=== PATIENT | male | born 1950 | race Caucasian/White ===

== ENCOUNTER 2020-09-15 15:11 | Inpatient (IN) | payer OTHER, MEDICARE ==
--- NOTE | 2020-09-15 15:59 | ED ---
Chest Pain HPI - General Chief Complaint: Chest Pain Stated Complaint: Chest Pain Time Seen by Provider: 09/15/20 15:42 Source: patient Mode of arrival: ambulatory Limitations: no limitations - History of Present Illness Initial Comments: Dictation was produced using [employer] dictation software. please excuse any grammatical, word or spelling errors. This patient was cared for during a federal and state declared state of emergency secondary to Covid 19 Chief Complaint: 70-year-old male past medical history of diabetes, this to be due to hypertension, abdominal wall hernia presents with epigastric point tenderness and left anterior rib pain History of Present Illness: 70-year-old male has multiple comorbidities. 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 He states he was in various POSITIONS that he is not normally used to. He states that while he was working he began to feel a pop tart tenderness over his epigastric area. States that it only hurts when he presses surgery positions. Same goes for his left anterior rib pain. He has no Lee diaphoresis. No radiation of symptoms to this shoulder shower extremities. Patient has history of broad-based ventral hernia. He has no nausea vomiting. The ROS documented in this emergency department record has been reviewed and confirmed by me. Those systems with pertinent positive or negative responses have been documented in the HPI. All other systems are other negative and/or noncontributory. PHYSICAL EXAM: General Impression: Alert and oriented x3, not in acute distress HEENT: Normocephalic atraumatic, extra-ocular movements intact, pupils equal and reactive to light bilaterally, mucous membranes moist. Cardiovascular: Heart regular rate and rhythm Chest: Able to complete full sentences, no retractions, no tachypnea Abdomen: abdomen soft, non-distended, no organomegaly, 2 x 2 cm point palpatory tenderness to the epigastric area just below the xiphoid. Rest of abdominal exam is benign Musculoskeletal: Pulses present and equal in all extremities, no peripheral edema Motor: no focal deficits noted Neurological: CN II-XII grossly intact, no focal motor or sensory deficits noted Skin: Intact with no visualized rashes Psych: Normal affect and mood ED course:70-year-old male presents with clinical presentation consistent with upper abdominal wall strain and left sided rib strain. vital signs upon arrival are within acceptable limits. Platelet care bedside ultrasound was performed showing no subcutaneous abnormalities. There is no abnormal fluid collection or signs of subcu to use inflammation. Lab data evaluation obtained mild acidosis similar 0.5. Metabolic panel is negative. Lipase is 1500. Patient's symptoms are secondary to pancreatitis. Patient will be admitted. Case was discussed Dr. Orozco who requested a gallbladder ultrasound. Patient be admitted for supportive management, GI consultation and further care. Patient be admitted to Dr. Orozco EKG interpretation: Ventricular rate 106, sinus tachycardia,. 156, QRS 80, QTC 475. No PA prolongation, no QTC prolongation, no ST or T-wave changes noted. No old EKG for comparison Overall, this EKG is unremarkable - Related Data Home Medications Medication Instructions Recorded Confirmed Cyclobenzaprine [Flexeril] 10 mg PO BID PRN 03/19/20 09/15/20 lisinopriL 20 mg PO DAILY 03/19/20 09/15/20 Cholecalciferol [Vitamin D3 (25 50 mcg PO DAILY 09/15/20 09/15/20 Mcg = 1000 Iu)] L.acidoph,Paracasei, B.lactis 1 cap PO BID 09/15/20 09/15/20 [Probiotic] Multivitamins, Thera [Multivitamin 1 tab PO DAILY 09/15/20 09/15/20 (formulary)] Pravastatin Sodium 40 mg PO HS 09/15/20 09/15/20 Allergies Allergy/AdvReac Type Severity Reaction Status Date / Time No Known Allergies Allergy Verified 09/15/20 17:06 Review of Systems ROS Statement: Those systems with pertinent positive or pertinent negative responses have been documented in the HPI. ROS Other: All systems not noted in ROS Statement are negative. Past Medical History Past Medical History: Cancer, Diabetes Mellitus, Hyperlipidemia, Hypertension, Osteoarthritis (OA) Additional Past Medical History / Comment(s): Plantar Faciitis , hiatal hernia. History of Any Multi-Drug Resistant Organisms: None Reported Additional Past Surgical History / Comment(s): hemicolectomy Past Anesthesia/Blood Transfusion Reactions: No Reported Reaction Past Psychological History: No Psychological Hx Reported Smoking Status: Current every day smoker Past Alcohol Use History: Daily Past Drug Use History: None Reported General Exam Limitations: no limitations Course Vital Signs 09/15/20 09/15/20 09/15/20 15:13 15:34 16:15 Temperature 97.9 F Pulse Rate 96 93 84 Respiratory 20 18 16 Rate Blood Pressure 153/86 147/97 124/88 O2 Sat by Pulse 98 99 97 Oximetry Disposition Clinical Impression: Pancreatitis Disposition: ADMITTED IP TO THIS HOSP Condition: Fair Referrals: Fabien Orozco Jr, DO [Primary Care Provider] - 1-2 days Decision Time: 17:18
[2020-09-15 16:06] LABS: Basophils % (A) 0 %; Eosinophils # (A) 0.4 k/uL (0-0.7); Eosinophils % (A) 3 %; HCT 37.3 % (39.0-53.0); HGB 12.6 gm/dL (13.0-17.5); Lymphocytes # (A) 1.4 k/uL (1.0-4.8); Lymphocytes % (A) 12 %; MCH 29.3 pg (25.0-35.0); MCHC 33.9 g/dL (31.0-37.0); MCV 86.3 fL (80.0-100.0); Mean Platelet Volume 7.1; Monocytes # (A) 0.4 k/uL (0-1.0); Monocytes % (A) 4 %; Neutrophils # (A) 9.2 k/uL (1.3-7.7); Neutrophils % (A) 80 %; Platelet Count 363 k/uL (150-450); RBC 4.32 m/uL (4.30-5.90); RDW 12.9 % (11.5-15.5); WBC 11.5 k/uL (3.8-10.6)
[2020-09-15 16:19] LABS: ALT 37 U/L (4-49); AST 56 U/L (17-59); African American GFR (CKD) >90 (>60 ml/min/1.73 sqM); Albumin 4.2 g/dL (3.5-5.0); Alkaline Phosphatase 217 U/L (38-126); Anion Gap 7 mmol/L; Blood Urea Nitrogen 16 mg/dL (9-20); Calcium 9.8 mg/dL (8.4-10.2); Carbon Dioxide 31 mmol/L (22-30); Chloride 100 mmol/L (98-107); Glucose 135 mg/dL (74-99); Lipase 1499 U/L (23-300); Non-African American GFR(CKD) >90 (>60 ml/min/1.73 sqM); Potassium 4.4 mmol/L (3.5-5.1); Sodium 138 mmol/L (137-145); Total Bilirubin 0.4 mg/dL (0.2-1.3); Total Protein 7.2 g/dL (6.3-8.2)
--- NOTE | 2020-09-15 16:44 | XR ---
EXAMINATION TYPE: XR abdomen acute w cxr DATE OF EXAM: 09/15/2020 COMPARISON: 09/28/2011 chest x-ray HISTORY: Chest pain TECHNIQUE: 4 views FINDINGS: Heart is normal. Lungs are clear of consolidation. There are numerous calcified granulomata scattered in the lungs. There are no hilar masses. Mediastinum is normal. There are chest leads. The re is no sign of pleural effusion. There is no sign of intestinal obstruction or pneumoperitoneum. Fecal pattern is normal. There is no evidence of a mass. There are no pathologic calcifications over the kidneys. IMPRESSION: Nonacute abdomen. Old granulomatous disease. No active cardiopulmonary disease. No adverse change of the chest compared to old exam. Normal heart.
[2020-09-15] MEDS ORDERED: SODIUM CHLORIDE 0.9% 1,000 ML IV STA (16:52)
[2020-09-15] MEDS ORDERED: NALOXONE 0.4 MG/ML 1 ML VIAL IV PRN (17:12)
[2020-09-15] MEDS ORDERED: ONDANSETRON 4 MG/2 ML VIAL IVP PRN (17:12)
--- NOTE | 2020-09-15 19:10 | US ---
EXAMINATION TYPE: US gallbladder DATE OF EXAM: 09/15/2020 COMPARISON: NONE CLINICAL HISTORY: pancreatitis. Pancreatitis per order. Hx colon cancer and part of colon removed per patient. EXAM MEASUREMENTS: Liver Length: 19.6 cm Gallbladder Wall: 0.22 cm CBD: 0.69 cm Right Kidney: 11.8 x 6.0 x 5.5 cm Pancreas: Appears heterogeneous. Limited visibility of tail. Duct measures 2.9 mm. Liver: Appears enlarged and very heterogeneous. Multiple areas visualized in liver. Hyperechoic ar ea seen right lobe measurin.9 x 3.6 x 3.5 cm. A second hyperechoic area seen right lobe measuring : 3.0 x 4.1 x 2.4 cm. Hypoechoic area seen right lobe measurin.6 x 2.4 x 1.5 cm. Gallbladder: Appears anechoic. Evidence for sonographic Wilcox's sign: No CBD: Appears slightly dilated versus measuring upper limits of normal. Right Kidney: No hydronephrosis or masses seen IMPRESSION: No dilation seen of the intrahepatic bile ducts. Large common bile duct could relate to some gallblad sony dysfunction. No gallstones seen. Multiple solid liver lesions. These are nonspecific. Hemangiomas are possible.
[2020-09-15] MEDS: HYDROcodone/APAP 10-325MG 1 EACH TAB PO PRN (22:43)
[2020-09-15] MEDS: PRAVASTATIN SODIUM 80 MG TAB PO SCH (22:43)
[2020-09-16] MEDS: lisinopriL 20 MG TAB PO SCH (09:22)
[2020-09-16] MEDS: HYDROcodone/APAP 10-325MG 1 EACH TAB PO PRN ×3 (09:24→20:31)
--- NOTE | 2020-09-16 09:44 | NM ---
EXAMINATION TYPE: NM hepatobiliary w CCK DATE OF EXAM: 09/16/2020 COMPARISON: Gallbladder ultrasound from yesterday HISTORY: Gallbladder dysfunction per order. Epigastric pain, heartburn-like symptoms. TECHNIQUE: After the intravenous administration of 5.0 mCi Tc 99m Mebrofenin hepatobiliary scintigrap hy is performed. Immediate images post injection. FINDINGS: There is satisfactory initial accumulation of tracer by the liver. The gallbladder is visualized wit hin 15 minutes. The small bowel activity is noted within 45 minutes. At one hour CCK was administer ed, patient was injected with 1.8 mcg of Kinevac, and gallbladder ejection fraction is calculated at 72 %, in the normal range. Therefore there is no scintigraphic evidence of cystic or common bile cathy t obstruction to suggest acute cholecystitis or gallbladder dyskinesia. IMPRESSION: Exam is within normal limits.
[2020-09-16] MEDS: SODIUM CHLORIDE 0.9% 1,000 ML IV SCH ×3 (10:23→16:42)
[2020-09-16 10:29] LABS: Basophils % (A) 0 %; Eosinophils # (A) 0.2 k/uL (0-0.7); Eosinophils % (A) 2 %; HCT 33.9 % (39.0-53.0); HGB 11.2 gm/dL (13.0-17.5); Lymphocytes # (A) 0.9 k/uL (1.0-4.8); Lymphocytes % (A) 9 %; MCV 87.9 fL (80.0-100.0); Mean Platelet Volume 7.5; Monocytes # (A) 0.4 k/uL (0-1.0); Monocytes % (A) 4 %; Neutrophils # (A) 8.8 k/uL (1.3-7.7); Neutrophils % (A) 84 %; Platelet Count 304 k/uL (150-450); RBC 3.86 m/uL (4.30-5.90); WBC 10.4 k/uL (3.8-10.6)
[2020-09-16 11:00] LABS: ALT 40 U/L (4-49); AST 59 U/L (17-59); African American GFR (CKD) >90 (>60 ml/min/1.73 sqM); Albumin 3.5 g/dL (3.5-5.0); Albumin/Globulin Ratio 1.3; Alkaline Phosphatase 187 U/L (38-126); Anion Gap 3 mmol/L; Blood Urea Nitrogen 13 mg/dL (9-20); Calcium 8.8 mg/dL (8.4-10.2); Carbon Dioxide 28 mmol/L (22-30); Chloride 106 mmol/L (98-107); Globulin 2.8 g/dL; Glucose 104 mg/dL (74-99); Lipase 376 U/L (23-300); Non-African American GFR(CKD) >90 (>60 ml/min/1.73 sqM); Potassium 4.4 mmol/L (3.5-5.1); Sodium 137 mmol/L (137-145); Total Bilirubin 0.5 mg/dL (0.2-1.3); Total Protein 6.3 g/dL (6.3-8.2)
--- NOTE | 2020-09-16 13:20 | P.GSCN ---
History of Present Illness Consult date: 09/16/20 History of present illness: CHIEF COMPLAINT: Abdominal pain HISTORY OF PRESENT ILLNESS: This is a 70-year-old male with a known history of hypertension, borderline diabetic, hyperlipidemia, abdominal wall hernia, nicotine dependence, colon cancer status post hemicolectomy. Patient presented to the emergency room with complaints of epigastric pain. He reports that the pain started yesterday. Patient was found to have elevated lipase and his been diagnosed with acute pancreatitis. He reports no prior history of pancreatitis. He reports having about 2-3 beers over the last 6 months. He has not had any alcohol recently. He denies any fever, chills or sweats. Denies any change in bowel movements. PAST MEDICAL HISTORY: See list. PAST SURGICAL HISTORY: See list. MEDICATIONS: See list. ALLERGIES: See list. SOCIAL HISTORY: No illicit drug use. REVIEW OF SYSTEMS: CONSTITUTIONAL: Denies fever or chills. HEENT: Denies blurred vision, vision changes, or eye pain. Denies hemoptysis CARDIOVASCULAR: Denies chest pain or pressure. RESPIRATORY: No shortness of breath. GASTROINTESTINAL: See HPI for pertinent findings HEMATOLOGIC: Denies bleeding disorders. GENITOURINARY: Denies any blood in urine or increased urinary frequency. SKIN: Denies pruitis. Denies rash. PHYSICAL EXAM: VITAL SIGNS: Reviewed GENERAL: Well-developed in no acute distress. HEENT: No sclera icterus. Extraocular movements grossly intact. Moist buccal mucosa. Head is atraumatic, normocephalic. No nasal drainage. ABDOMEN: Soft. Nondistended. Epigastric tenderness with palpation NEUROLOGIC: Alert and oriented. Cranial nerves II through XII grossly intact. LABORATORY DATA: WBC 10.4 Hgb 11.2 platelets 304 sodium 137 potassium 4.4 creatinine 0.66 LFTs are normal alk phos 187 and lipase has come down from 1499-376 IMAGING: Gallbladder ultrasound no dilation seen of the intrahepatic bile ducts. Large common bile duct could relate to some gallbladder dysfunction. No gallstones seen. HIDA scan: Exam within normal limits EF 72% Abdominal x-ray nonacute abdomen ASSESSMENT: 1. Acute pancreatitis improving. 2. No evidence of gallbladder dysfunction on HIDA scan PLAN: -Continue supportive care -Continue IV fluids -No surgical intervention planned Thank you for this consultation Physician [employer] note has been reviewed by physician. Signing provider agrees with the documented findings, assessment, and plan of care. Past Medical History Past Medical History: Cancer, Diabetes Mellitus, Hyperlipidemia, Hypertension, Osteoarthritis (OA) Additional Past Medical History / Comment(s): Plantar Faciitis , hiatal hernia. Colon CA- surg (no chemo/ rad),. Pre-diabetes (last hbg A1C- 5.4) History of Any Multi-Drug Resistant Organisms: None Reported Additional Past Surgical History / Comment(s): hemicolectomy Past Anesthesia/Blood Transfusion Reactions: No Reported Reaction Past Psychological History: No Psychological Hx Reported Smoking Status: Current every day smoker Past Alcohol Use History: Daily Past Drug Use History: None Reported Additional Drug Use History / Comment(s): 1ppd smoking x 50 years Medications and Allergies Home Medications Medication Instructions Recorded Confirmed Type Cyclobenzaprine [Flexeril] 10 mg PO BID PRN 03/19/20 09/15/20 History lisinopriL 20 mg PO DAILY 03/19/20 09/15/20 History Cholecalciferol [Vitamin D3 (25 50 mcg PO DAILY 09/15/20 09/15/20 History Mcg = 1000 Iu)] L.acidoph,Paracasei, B.lactis 1 cap PO BID 09/15/20 09/15/20 History [Probiotic] Multivitamins, Thera [Multivitamin 1 tab PO DAILY 09/15/20 09/15/20 History (formulary)] Pravastatin Sodium 40 mg PO HS 09/15/20 09/15/20 History Allergies Allergy/AdvReac Type Severity Reaction Status Date / Time No Known Allergies Allergy Verified 09/15/20 17:06 Surgical - Exam Vital Signs Temp Pulse Resp BP Pulse Ox 97.9 F 96 20 153/86 98 09/15/20 15:13 09/15/20 15:13 09/15/20 15:13 09/15/20 15:13 09/15/20 15:13 Results - Labs 09/16/20 10:16 09/16/20 10:16 Abnormal Lab Results - Last 24 Hours (Table) 09/15/20 09/15/20 09/16/20 Range/Units 15:58 15:58 10:16 WBC 11.5 H (3.8-10.6) k/uL RBC 3.86 L (4.30-5.90) m/uL Hgb 12.6 L 11.2 L (13.0-17.5) gm/dL Hct 37.3 L 33.9 L (39.0-53.0) % Neutrophils # 9.2 H 8.8 H (1.3-7.7) k/uL Lymphocytes # 0.9 L (1.0-4.8) k/uL Carbon Dioxide 31 H (22-30) mmol/L Glucose 135 H (74-99) mg/dL Alkaline Phosphatase 217 H (38-126) U/L Lipase 1499 H (23-300) U/L 09/16/20 Range/Units 10:16 WBC (3.8-10.6) k/uL RBC (4.30-5.90) m/uL Hgb (13.0-17.5) gm/dL Hct (39.0-53.0) % Neutrophils # (1.3-7.7) k/uL Lymphocytes # (1.0-4.8) k/uL Carbon Dioxide (22-30) mmol/L Glucose 104 H (74-99) mg/dL Alkaline Phosphatase 187 H (38-126) U/L Lipase 376 H (23-300) U/L Diabetes panel 09/15/20 09/16/20 Range/Units 15:58 10:16 Sodium 138 137 (137-145) mmol/L Potassium 4.4 4.4 (3.5-5.1) mmol/L Chloride 100 106 (98-107) mmol/L Carbon Dioxide 31 H 28 (22-30) mmol/L BUN 16 13 (9-20) mg/dL Creatinine 0.72 0.66 (0.66-1.25) mg/dL Glucose 135 H 104 H (74-99) mg/dL Calcium 9.8 8.8 (8.4-10.2) mg/dL AST 56 59 (17-59) U/L ALT 37 40 (4-49) U/L Alkaline Phosphatase 217 H 187 H (38-126) U/L Total Protein 7.2 6.3 (6.3-8.2) g/dL Albumin 4.2 3.5 (3.5-5.0) g/dL Calcium panel 09/15/20 09/16/20 Range/Units 15:58 10:16 Calcium 9.8 8.8 (8.4-10.2) mg/dL Albumin 4.2 3.5 (3.5-5.0) g/dL Pituitary panel 09/15/20 09/16/20 Range/Units 15:58 10:16 Sodium 138 137 (137-145) mmol/L Potassium 4.4 4.4 (3.5-5.1) mmol/L Chloride 100 106 (98-107) mmol/L Carbon Dioxide 31 H 28 (22-30) mmol/L BUN 16 13 (9-20) mg/dL Creatinine 0.72 0.66 (0.66-1.25) mg/dL Glucose 135 H 104 H (74-99) mg/dL Calcium 9.8 8.8 (8.4-10.2) mg/dL Adrenal panel 09/15/20 09/16/20 Range/Units 15:58 10:16 Sodium 138 137 (137-145) mmol/L Potassium 4.4 4.4 (3.5-5.1) mmol/L Chloride 100 106 (98-107) mmol/L Carbon Dioxide 31 H 28 (22-30) mmol/L BUN 16 13 (9-20) mg/dL Creatinine 0.72 0.66 (0.66-1.25) mg/dL Glucose 135 H 104 H (74-99) mg/dL Calcium 9.8 8.8 (8.4-10.2) mg/dL Total Bilirubin 0.4 0.5 (0.2-1.3) mg/dL AST 56 59 (17-59) U/L ALT 37 40 (4-49) U/L Alkaline Phosphatase 217 H 187 H (38-126) U/L Total Protein 7.2 6.3 (6.3-8.2) g/dL Albumin 4.2 3.5 (3.5-5.0) g/dL
[2020-09-16] MEDS ORDERED: CYCLOBENZAPRINE 10 MG TAB PO PRN (14:37)
--- NOTE | 2020-09-16 14:37 | P.HPIM ---
History of Present Illness H&P Date: 09/16/20 Chief Complaint: abdominal pain this is a 70 y/o white male known to the office with htn and hyperlipidemiamn. H e is c/o LUQ pain constant nonradiating sharp starting 36 hours ago and remainng constant since then. It has gradually improved and now feels achy only.. He denies any nausea, vomiting, sob, diarrhea or constipation. U/S abdoemn showed enlarged CBD, but CCK hida negative for dysfunction. He is afebrile and labs other than all phos and lipase have been normal. Lipasea is down from 1499 to 326 and alk phos now 187 from 217. He is NPO currently. Review of Systems All systems: negative Past Medical History Past Medical History: Cancer, Diabetes Mellitus, Hyperlipidemia, Hypertension, Osteoarthritis (OA) Additional Past Medical History / Comment(s): Plantar Faciitis , hiatal hernia. Colon CA- surg (no chemo/ rad),. Pre-diabetes (last hbg A1C- 5.4) History of Any Multi-Drug Resistant Organisms: None Reported Additional Past Surgical History / Comment(s): hemicolectomy Past Anesthesia/Blood Transfusion Reactions: No Reported Reaction Past Psychological History: No Psychological Hx Reported Smoking Status: Current every day smoker Past Alcohol Use History: Daily Past Drug Use History: None Reported Additional Drug Use History / Comment(s): 1ppd smoking x 50 years Medications and Allergies Home Medications Medication Instructions Recorded Confirmed Type Cyclobenzaprine [Flexeril] 10 mg PO BID PRN 03/19/20 09/15/20 History lisinopriL 20 mg PO DAILY 03/19/20 09/15/20 History Cholecalciferol [Vitamin D3 (25 50 mcg PO DAILY 09/15/20 09/15/20 History Mcg = 1000 Iu)] L.acidoph,Paracasei, B.lactis 1 cap PO BID 09/15/20 09/15/20 History [Probiotic] Multivitamins, Thera [Multivitamin 1 tab PO DAILY 09/15/20 09/15/20 History (formulary)] Pravastatin Sodium 40 mg PO HS 09/15/20 09/15/20 History Allergies Allergy/AdvReac Type Severity Reaction Status Date / Time No Known Allergies Allergy Verified 09/15/20 17:06 Physical Exam Vitals: Vital Signs Temp Pulse Pulse Resp BP BP Pulse Ox 09/16/20 12:43 98 F 78 18 163/84 95 09/16/20 05:00 98.1 F 78 20 130/81 95 09/15/20 20:20 97.8 F 89 20 151/83 99 09/15/20 20:00 20 09/15/20 18:16 85 18 143/89 97 09/15/20 16:15 84 16 124/88 97 09/15/20 15:34 93 18 147/97 99 09/15/20 15:13 97.9 F 96 20 153/86 98 Intake and Output 09/15/20 09/16/20 09/16/20 22:59 06:59 14:59 Intake Total 100 1250 1500 Balance 100 1250 1500 Intake: Intake, IV Titration 1250 1500 Amount Sodium Chloride 0.9% 1, 1500 000 ml @ 125 mls/hr IV . Q8H TIGRE Rx#:[id number] Sodium Chloride 0.9% 1, 1250 000 ml @ 125 mls/hr IV . Q8H STA Rx#:[id number] Oral 100 Other: Voiding Method Toilet # Voids 3 3 # Bowel Movements 1 Weight 88.451 kg GENERAL EXAM: Alert, pleasant 70-year-old gentleman, in minimal distress. HEAD: Normocephalic. EYES: Normal reaction of pupils, equal size. NOSE: Clear with pink turbinates. THROAT: No erythema or exudates. NECK: No masses, no JVD. CHEST: No chest wall deformity. LUNGS: Equal air entry with wheezing or crackles, scattered rhonchi. CVS: S1 and S2 normal with no audible murmur, regular rhythm. ABDOMEN: No hepatosplenomegaly, normal bowel sounds, no guarding or rigidity. mild pain to LUQ, midepigastric pain. SPINE: No scoliosis or deformity SKIN: No rashes CENTRAL NERVOUS SYSTEM: No focal deficits, tone is normal in all 4 extremities. EXTREMITIES: There is no peripheral edema. No clubbing, no cyanosis. Peripheral pulses are intact. Results CBC & Chem 7: 09/16/20 10:16 09/16/20 10:16 Labs: Abnormal Lab Results - Last 24 Hours (Table) 09/15/20 09/15/20 09/16/20 Range/Units 15:58 15:58 10:16 WBC 11.5 H (3.8-10.6) k/uL RBC 3.86 L (4.30-5.90) m/uL Hgb 12.6 L 11.2 L (13.0-17.5) gm/dL Hct 37.3 L 33.9 L (39.0-53.0) % Neutrophils # 9.2 H 8.8 H (1.3-7.7) k/uL Lymphocytes # 0.9 L (1.0-4.8) k/uL Carbon Dioxide 31 H (22-30) mmol/L Glucose 135 H (74-99) mg/dL Alkaline Phosphatase 217 H (38-126) U/L Lipase 1499 H (23-300) U/L 09/16/20 Range/Units 10:16 WBC (3.8-10.6) k/uL RBC (4.30-5.90) m/uL Hgb (13.0-17.5) gm/dL Hct (39.0-53.0) % Neutrophils # (1.3-7.7) k/uL Lymphocytes # (1.0-4.8) k/uL Carbon Dioxide (22-30) mmol/L Glucose 104 H (74-99) mg/dL Alkaline Phosphatase 187 H (38-126) U/L Lipase 376 H (23-300) U/L Abdominal x-ray: report reviewed US - abdomen: report reviewed Thrombosis Risk Factor Assmnt - DVT/VTE Prophylaxis DVT/VTE Prophylaxis: Low risk, early ambulation encouraged - Choose All That Apply Each Risk Factor Represents 2 Points: Age 61-74 years Thrombosis Risk Factor Assessment Total Risk Factor Score: 2 Thrombosis Risk Factor Assessment Level: Low Risk Assessment and Plan (1) Essential (primary) hypertension Current Visit: Yes Status: Acute Code(s): I10 - ESSENTIAL (PRIMARY) HYPERTENSION SNOMED Code(s): 56637931 (2) Mixed hyperlipidemia Current Visit: Yes Status: Acute Code(s): E78.2 - MIXED HYPERLIPIDEMIA SNOMED Code(s): 028636704 (3) Pancreatitis Current Visit: Yes Status: Acute Code(s): K85.90 - ACUTE PANCREATITIS WITHOUT NECROSIS OR INFECTION, UNSP SNOMED Code(s): 22979176 Plan: wait on surgical and GI consults repeat labs in am reevaluate in the next 24 hours
[2020-09-16] MEDS: MULTIVITAMINS, THERA 1 EACH TAB PO SCH (15:02)
[2020-09-16] MEDS: CHOLECALCIFEROL 25 MCG (1000 IU) TABLET PO SCH (15:02)
--- NOTE | 2020-09-16 15:41 | CONS ---
CONSULTATION DATE OF DICTATION: September 16, 2020 REASON FOR CONSULTATION: Acute pancreatitis. HISTORY OF PRESENT ILLNESS: The patient is a 70-year-old pleasant white male with history of hypertension, hyperlipidemia, admitted to the hospital with acute onset of severe epigastric pain that started yesterday morning. The pain continued to progressively get worse, radiated to the left upper quadrant area and to his back. He had some nausea, but no emesis. He came into the emergency room and had elevated lipase consistent with acute pancreatitis. He never had these symptoms in the past. Remote history of alcohol use and lately has been drinking on a social basis 1-2 beers every 2 weeks. In the ER, lipase was elevated to 1499. Serum ALT and AST are normal, but alkaline phosphatase was 217. He did have ultrasound of the gallbladder done that showed no evidence of gallstones, dilated CBD and 3 lesions in the liver suspicious for hemangioma. He denies any family history of acute pancreatitis. No prior history of peptic ulcer disease. He uses Motrin as needed for chronic back pain. PAST MEDICAL HISTORY: Hypertension, hyperlipidemia, diabetes mellitus, degenerative joint disease, colon cancer in 2018, status post resection. PAST SURGICAL HISTORY: Right hemicolectomy, hiatal hernia repair. MEDICATIONS: Medications at home include Flexeril, vitamin D3, probiotics, multivitamin, pravastatin, lisinopril. ALLERGIES: None. SOCIAL HISTORY: Chronic smoker. Remote history of heavy alcohol use. FAMILY HISTORY: Unremarkable. REVIEW OF SYSTEMS: CARDIOPULMONARY: No shortness of breath. GENITOURINARY: No dysuria or hematuria. MUSCULOSKELETAL: Unremarkable other than chronic back pain. NEUROLOGY: Unremarkable. PSYCHIATRIC: Unremarkable. ENT/VISION: Unremarkable. CONSTITUTIONAL: No recent weight loss. No fever, chills, night sweats. HEMATOLOGY: Unremarkable. ENDOCRINE: Diabetes mellitus. PHYSICAL EXAMINATION: He appears comfortable. Vital signs are stable. Blood pressure 163/84, pulse rate 78, temperature 98. HEENT EXAMINATION: Unremarkable. Conjunctivae pink. Sclerae anicteric. Oral cavity no lesions. NECK: No JVD or lymph node enlargement. CHEST: Clear to auscultation. HEART: Regular rate and rhythm. ABDOMEN: Soft. There was tenderness in the epigastric area. Mild tenderness in the left upper quadrant area. Rest of the abdomen was benign. EXTREMITIES: No pedal edema. SKIN: No rashes. NEUROLOGIC: Alert and oriented x3. No focal deficits. LABS: WBC 10.4, hemoglobin 11.2, platelets normal. Basic metabolic panel is within normal limits. AST and ALT are 56 and 37 respectively, alkaline phosphatase 217, T bilirubin 0.4. Lipase 1499 and today it is 376. Coronavirus PCR is negative. IMPRESSION: 1. This patient presents to the hospital with acute onset of severe epigastric pain associated with nausea that started yesterday morning, noted to have elevated lipase consistent with acute pancreatitis. Ultrasound of the gallbladder showed no gallstones, but dilated CBD and there were 3 lesions in the liver suspicious for hemangioma. He did have a HIDA scan this morning that was unremarkable with a normal ejection fraction of 72%. Etiology of pancreatitis remains unclear. No history of alcohol use and ultrasound did not show any gallstones. 2. History of hypertension and hyperlipidemia. 3. History of diabetes mellitus. 4. History of chronic back pain. RECOMMENDATION: 1. Continue with symptomatic and supportive care. 2. Aggressive IV hydration. 3. Okay for ice chips. 4. Monitor labs closely. 5. Obtain IgG4 levels and MAE as well as fasting serum triglycerides. 6. Monitor labs closely. 7. We will follow with you. Thank you for this consultation. MMODL / IJN: [id number] /
[2020-09-16] MEDS: LACTOBACILLUS ACIDOPH & BULGAR 1 EACH PACKET PO SCH (20:30)
[2020-09-16] MEDS: PRAVASTATIN SODIUM 80 MG TAB PO SCH (20:31)
[2020-09-17] MEDS: SODIUM CHLORIDE 0.9% 1,000 ML IV SCH ×2 (01:25→08:58)
[2020-09-17] MEDS: lisinopriL 20 MG TAB PO SCH (08:53)
[2020-09-17] MEDS: MULTIVITAMINS, THERA 1 EACH TAB PO SCH (08:53)
[2020-09-17] MEDS: LACTOBACILLUS ACIDOPH & BULGAR 1 EACH PACKET PO SCH (08:54)
[2020-09-17] MEDS: CHOLECALCIFEROL 25 MCG (1000 IU) TABLET PO SCH (08:54)
[2020-09-17 09:15] LABS: Basophils # (A) 0.03 X 10*3/uL (0.00-0.10); Basophils % (A) 0.3 %; Eosinophils # (A) 0.24 X 10*3/uL (0.04-0.35); Eosinophils % (A) 2.2 %; HCT 32.5 % (39.6-50.0); HGB 10.2 g/dL (13.0-17.0); Lymphocytes # (A) 1.32 X 10*3/uL (0.90-5.00); Lymphocytes % (A) 12.4 %; MCH 28.3 pg (27.0-32.0); MCHC 31.4 g/dL (32.0-37.0); MCV 90.3 fL (80.0-97.0); Mean Platelet Volume 10.1 fL (9.5-12.2); Monocytes # (A) 0.67 X 10*3/uL (0.20-1.00); Monocytes % (A) 6.3 %; Neutrophils # (A) 8.38 X 10*3/uL (1.80-7.70); Neutrophils % (A) 78.4 %; Platelet Count 304 X 10*3/uL (140-440); RDW 13.2 % (11.5-14.5); WBC 10.68 X 10*3/uL (4.50-10.00)
[2020-09-17 10:43] LABS: African American GFR (CKD) 105.6 (60.0-200.0); Albumin 3.7 g/dL (3.80-4.90); Albumin/Globulin Ratio 1.95 (1.60-3.17); Anion Gap 10.2 mmol/L (4.00-12.00); BUN/Creat Ratio 17.5 Ratio (12.00-20.00); Calcium 8.4 mg/dL (8.7-10.3); Carbon Dioxide 23.8 mmol/L (21.6-31.8); Globulin 1.9 g/dL (1.6-3.3); Magnesium 1.8 mg/dL (1.5-2.4); Non-African American GFR(CKD) 91.1 (60.0-200.0); Potassium 4.3 mmol/L (3.5-5.5); Total Bilirubin 0.5 mg/dL (0.2-1.2); Total Protein 5.6 g/dL (6.2-8.2)
[2020-09-17 12:21] VITALS: BP 173/87; PULSE 91; RESP 17; TEMP 98
--- NOTE | 2020-09-17 12:52 | P.PN ---
Subjective Progress Note Date: 09/17/20 CHIEF COMPLAINT: Abdominal pain HISTORY OF PRESENT ILLNESS: Patient is followed for his pancreatitis. He has reported improvement in his epigastric pain. Lipase has normalized at 54. He will be refused to have an MRCP completed yesterday. Afebrile Patient seen and examined with Dr. smith PHYSICAL EXAM: VITAL SIGNS: Reviewed. GENERAL: Well-developed in no acute distress. HEENT: No sclera icterus. Extraocular movements grossly intact. Moist buccal mucosa. Head is atraumatic, normocephalic. ABDOMEN: Soft. Nondistended. Nontender. NEUROLOGIC: Alert and oriented. Cranial nerves II through XII grossly intact. ASSESSMENT: 1. Acute pancreatitis 2. No evidence of gallbladder dysfunction on HIDA scan PLAN: -Advance diet to full liquids -Continue supportive care -No surgical intervention planned Physician Truant Officer note has been reviewed by physician. Signing provider agrees with the documented findings, assessment, and plan of care. Objective - Vital Signs Vital signs: Vital Signs Temp 98 F 09/17/20 12:21 Pulse 91 09/17/20 12:21 Resp 17 09/17/20 12:21 BP 173/87 09/17/20 12:21 Pulse Ox 96 09/17/20 12:21 Intake & Output 09/16/20 09/17/20 09/17/20 18:59 06:59 18:59 Intake Total 1500 1620 Balance 1500 1620 Intake: Intake, IV Titration 1500 1500 Amount Sodium Chloride 0.9% 1, 1500 1500 000 ml @ 125 mls/hr IV . [facility] Rx#:[id number] Oral 120 Other: Voiding Method Toilet Toilet # Voids 3 1 # Bowel Movements 1 - Labs CBC & Chem 7: 09/17/20 04:41 09/17/20 04:41 Labs: Abnormal Lab Results - Last 24 Hours (Table) 09/17/20 09/17/20 Range/Units 04:41 04:41 WBC 10.68 H (4.50-10.00) X 10*3/uL RBC 3.60 L (4.40-5.60) X 10*6/uL Hgb 10.2 L (13.0-17.0) g/dL Hct 32.5 L (39.6-50.0) % MCHC 31.4 L (32.0-37.0) g/dL Neutrophils # 8.38 H (1.80-7.70) X 10*3/uL Glucose 65 L (70-110) mg/dL Calcium 8.4 L (8.7-10.3) mg/dL AST 38 H (14-35) U/L Alkaline Phosphatase 173 H (41-126) U/L Total Protein 5.6 L (6.2-8.2) g/dL Albumin 3.70 L (3.80-4.90) g/dL
[2020-09-17 14:12] LABS: IgG Subclass 3 33.5 mg/dL (11.0-85.0); IgG Subclass 4 54.2 mg/dL (3.0-175.0)
--- NOTE | 2020-09-17 14:56 | P.PN ---
Subjective Progress Note Date: 09/17/20 Principal diagnosis: Pancreatitis The patient is 70-year-old pleasant white male who was admitted to the hospital with acute onset of severe epigastric pain that started 2 days ago. He came into the emergency room had elevated lipase consistent with acute pancreatitis. He's never had previous diagnosis of pancreatitis. He has a remote history of alcohol use and has only been drinking on a social basis 1-2 beers every couple weeks. Ultrasound of the gallbladder was done that showed no evidence of gallstones, dilated CBD and 3 lesions in the liver suspicious for hemangioma. I discussed and was also completed and that was negative. He denies any family history of acute pancreatitis, no prior history of peptic ulcer disease. Repeat lipase today is 54, LFTs are normal. I close rate 120, IgG 4 is normal, and he is pending. The patient states his pain is improving, he still has some epigastric pain with palpation only. He denies any nausea or vomiting. He had a normal bowel movement. He was scheduled for an MRI and MRCP of the liver, he was unable to complete the study due to being claustrophobic and refusing any medication to complete the study. Objective - Vital Signs Vital signs: Vital Signs Temp 98.7 F 09/17/20 05:00 Pulse 85 09/17/20 05:00 Resp 20 09/17/20 05:00 BP 147/78 09/17/20 05:00 Pulse Ox 94 L 09/17/20 05:00 Intake & Output 09/16/20 09/17/20 09/17/20 18:59 06:59 18:59 Intake Total 1500 1620 Balance 1500 1620 Intake: Intake, IV Titration 1500 1500 Amount Sodium Chloride 0.9% 1, 1500 1500 000 ml @ 125 mls/hr IV . Q8H [facility] Rx#:[id number] Oral 120 Other: Voiding Method Toilet Toilet # Voids 3 1 # Bowel Movements 1 - Exam General appearance: The patient is alert, oriented, appears in no acute distress. HET: Head is normocephalic and atraumatic. Conjunctiva pink. Sclera anicteric. Neck: Supple without lymphadenopathy. Abdomen: Soft, epigastric tenderness, obese, nondistended with bowel sounds. No guarding or rigidity. Extremities: Normal skin color and turgor. No pedal edema Skin: No rashes, no jaundice Neurological: No focal deficits. Alert and oriented 3. - Labs CBC & Chem 7: 09/17/20 04:41 09/17/20 04:41 Labs: Abnormal Lab Results - Last 24 Hours (Table) 09/17/20 09/17/20 Range/Units 04:41 04:41 WBC 10.68 H (4.50-10.00) X 10*3/uL RBC 3.60 L (4.40-5.60) X 10*6/uL Hgb 10.2 L (13.0-17.0) g/dL Hct 32.5 L (39.6-50.0) % MCHC 31.4 L (32.0-37.0) g/dL Neutrophils # 8.38 H (1.80-7.70) X 10*3/uL Glucose 65 L (70-110) mg/dL Calcium 8.4 L (8.7-10.3) mg/dL AST 38 H (14-35) U/L Alkaline Phosphatase 173 H (41-126) U/L Total Protein 5.6 L (6.2-8.2) g/dL Albumin 3.70 L (3.80-4.90) g/dL Assessment and Plan (1) Pancreatitis Narrative/Plan: A 70-year-old gentleman who presented to the hospital with acute onset of severe epigastric pain associated with nausea that started 2 days ago. He was noted to have elevated lipase consistent with acute pancreatitis. Ultrasound of the gallbladder showed no gallstones, but a dilated CBD and there was 3 lesions in the liver suspicious for hemangioma. He also had a HIDA scan which was unremarkable with a normal ejection fraction of 72%. Etiology of pancreatitis remains unclear. No history of current alcohol use. Workup included triglycer ides which were 120, IgG 4 which was normal, and a which is currently pending results. MRI/MRCP was ordered, unfortunately patient was unable to tolerate the procedure and refused. He will be scheduled to follow up outpatient with gastroenterology and have an open MRI in the near future. Current Visit: Yes Status: Acute Code(s): K85.90 - ACUTE PANCREATITIS WITHOUT NECROSIS OR INFECTION, UNSP SNOMED Code(s): 24397558 (2) Essential (primary) hypertension Current Visit: Yes Status: Acute Code(s): I10 - ESSENTIAL (PRIMARY) HYPERTENSION SNOMED Code(s): 32829109 (3) Mixed hyperlipidemia Current Visit: Yes Status: Acute Code(s): E78.2 - MIXED HYPERLIPIDEMIA SNOMED Code(s): 476010924 Plan: 1. Continue symptomatic and supportive care 2. Advance to low-fat diet 3. IgG4, triglycerides and MAE, MAE pending results 4. She may be discharged home from a gastroenterology standpoint, with follow- up in one week. We'll plan for outpatient open MRI of the liver Thank you for this consultation Dr. Patricia Krueger I agree with the dictator's note, documented as a scribe by Shauna Lovett.
--- NOTE | 2020-09-18 10:58 | P.DS ---
Providers Date of admission: 09/15/20 17:12 Expected date of discharge: 09/17/20 Attending physician: Fabien Orozco Consults: 09/15/20 17:13 Consult Physician Routine Consulting Provider: Linda Krueger Consult Reason/Comments: pancreatitis Do you want consulting provider notified?: Yes 09/16/20 01:27 Consult Physician Urgent Consulting Provider: Froy Crain Consult Reason/Comments: r/o gallbladder complications Do you want consulting provider notified?: Yes Primary care physician: [facility] Course: Final Diagnoses: Acute Pancreatitis, etiology unclear, declined MRI and MRCP Hyperlipidemia.mixed Essential hypertension Obesity, BMI 30.5 Hospital course:this is a 70 y/o white male known to the office with htn and hyperlipidemiamn. H e is c/o LUQ pain constant nonradiating sharp starting 36 hours ago and remainng constant since then. It has gradually improved and now feels achy only.. He denies any nausea, vomiting, sob, diarrhea or constipation. U/S abdoemn showed enlarged CBD, but CCK hida negative for dysfunction. He is afebrile and labs other than all phos and lipase have been normal. Lipasea is down from 1499 to 326 and alk phos now 187 from 217. He is NPO currently. Evaluated by surgery and GI. Scheduled for an MRI and MRCP, but was unable to complete the study secondary to claustrophobia, declined medication to complete the study.Repeat lipase today is 54, LFTs are normal. Denies nausea vomiting or diarrhea, reports normal bowel movement. Denies abdominal pain-reports minimal epigastric pain only to palpation. Diet advanced to low-fat. Significant clinical improvement. Open Mri of liver OP recommended.Patient will be discharged home today in a stable condition with guarded prognosis, pending tolerating diet, final DC recommendations and clearance from both surgery and GI. EXAM: GENERAL: A 3, Sitting up in chair,NAD CARDIOVASCULAR: S1, S2 regular. No murmur, no edema. RESPIRATION: Breath sounds diminished in the bases. ABDOMEN: Soft, nondistended, mild mid epigastric tenderness to palpation. No guarding.positive bowel sounds. NERVOUS SYSTEM: Cranial N 2-12 grossly normal, no focal deficits. The impression and plan of care has been dictated as directed. : I performed a history and examination of this patient, discussed the same with the dictator. I agree with the dictator's note ,documented as a scribe. Any additional findings or plans will be noted. Patient Condition at Discharge: Stable Plan - Discharge Summary New Discharge Prescriptions: Continue Cyclobenzaprine [Flexeril] 10 mg PO BID PRN PRN Reason: Muscle Spasm lisinopriL 20 mg PO DAILY Cholecalciferol [Vitamin D3 (25 Mcg = 1000 Iu)] 50 mcg PO DAILY Pravastatin Sodium 40 mg PO HS Multivitamins, Thera [Multivitamin (formulary)] 1 tab PO DAILY L.acidoph,Paracasei, B.lactis [Probiotic] 1 cap PO BID Discharge Medication List Cyclobenzaprine [Flexeril] 10 mg PO BID PRN 03/19/20 [History] lisinopriL 20 mg PO DAILY 03/19/20 [History] Cholecalciferol [Vitamin D3 (25 Mcg = 1000 Iu)] 50 mcg PO DAILY 09/15/20 [Hist ory] L.acidoph,Paracasei, B.lactis [Probiotic] 1 cap PO BID 09/15/20 [History] Multivitamins, Thera [Multivitamin (formulary)] 1 tab PO DAILY 09/15/20 [History] Pravastatin Sodium 40 mg PO HS 09/15/20 [History] Follow up Appointment(s)/Referral(s): Fabien Orozco Jr, DO [Primary Care Provider] - 09/19/20 10:45 am Linda Krueger MD [STAFF PHYSICIAN] - 09/24/20 8:15 am Patient Instructions/Handouts: Pancreatitis (DC) Discharge Disposition: HOME SELF-CARE
== END 2020-09-17 15:41 | disposition home or self-care (01) | DRG 439 ==
LOC: EC 15:11 → 5NMEDONC 17:12
PROVIDERS: ADMIT Family Medicine; ATTEND Family Medicine
DX: K85.90 Acute pancreatitis without necrosis or infection, unspecified (principal); E87.2 Acidosis; E11.9 Type 2 diabetes mellitus without complications; Z20.822 Contact with and (suspected) exposure to COVID-19; I10 Essential (primary) hypertension; K82.8 Other specified diseases of gallbladder; K43.9 Ventral hernia without obstruction or gangrene; E78.2 Mixed hyperlipidemia; M19.90 Unspecified osteoarthritis, unspecified site; K44.9 Diaphragmatic hernia without obstruction or gangrene; M72.2 Plantar fascial fibromatosis; D18.09 Hemangioma of other sites; G89.29 Other chronic pain; M54.9 Dorsalgia, unspecified; F17.210 Nicotine dependence, cigarettes, uncomplicated; Z71.6 Tobacco abuse counseling; Z79.899 Other long term (current) drug therapy; Z85.038 Personal history of other malignant neoplasm of large intestine; Z90.49 Acquired absence of other specified parts of digestive tract; Z87.19 Personal history of other diseases of the digestive system
CPT/HCPCS: 36415; 74022; 76705; 78227; 80053; 82787; 83690; 83735; 84478; 85025; 86038; 87635; 93005; 96360; 96361; 99285